=== PATIENT | male | born 1955 | race American Indian/Alaskan Native ===

== ENCOUNTER → 2017-11-17 | Outpatient (CLI) | payer OTHER | END | disposition home or self-care (01) | LOC: LABWHC1 12:08 → LABPAT 12:31 | PROVIDERS: ATTEND Orthopaedic Surgery | DX: Z01.812 Encounter for preprocedural laboratory examination (principal) | CPT/HCPCS: 87070 ==

== ENCOUNTER 2017-11-27 07:30 | Inpatient (IN) | payer OTHER ==
[2017-11-16 11:26] VITALS: BMI 45.8
--- NOTE | 2017-11-26 10:22 | HP ---
HISTORY AND PHYSICAL REASON FOR ADMISSION: 11/27/17 Britton Smith is a 62-year-old patient seen with symptomatic left knee osteoarthritis. We discussed treatment options. He elected to proceed with left total knee arthroplasty. Consent regarding the procedure was obtained. Medical clearance was provided by Dr. Aditya Hyde. PAST MEDICAL HISTORY: Ewm-xcpzcxh-kkqizffig diabetes, hypertension. PAST SURGICAL HISTORY: Left shoulder arthroscopy, left wrist surgery. MEDICATIONS: Metformin, Alprazolam, losartan. ALLERGIES: CELEBREX, METHOTREXATE. MORPHINE. SOCIAL HISTORY: Patient denies tobacco use. PHYSICAL EXAMINATION: Evaluation of the left knee range of motion is -2 to 100 degrees. Tenderness along the medial joint line. Positive medial Kassandra's. Crepitus along the medial patellofemoral compartments. Range of motion. Pain with patellofemoral compression. Ligaments stable. Hip rotation without pain. Distal neurovascular exam intact. RADIOGRAPHS: Radiographs of the left knee revealed severe medial moderate patellofemoral compartment osteoarthritis. IMPRESSION: 1. Left knee osteoarthritis. 2. Hypertension. 3. Npf-[id number] diabetes. PLAN: Left total knee arthroplasty. Surgery scheduled for 11/27/17. MMODL / IJN: [id number] /
[~2017-11-27 07:30] MED LIST: ACETAMINOPHEN TAB 500 MG TAB PO ONE; DEXAMETHASONE SOD PHOSPHATE 10 MG/ML 1 ML VIAL IV ONE; LACTATED RINGERS 1,000 ML IV SCH; LIDOCAINE 1% 20 ML VIAL (10MG/ML) FOR IV START INTRADERMA PRN; MELOXICAM 7.5 MG TAB PO ONE; MIDAZOLAM 2 MG/2 ML VIAL IV PRN; MORPHINE SULFATE 2 MG/ML SYRINGE IV PRN; ONDANSETRON ODT 4 MG TAB PO ONE; SCOPOLAMINE 1.5MG/72HR PATCH TRANSDERM ONE; TRANEXAMIC ACID 1,000 MG in SODIUM CHLORIDE 0.9% 50 ML IVPB ONE
[2017-11-27 08:55] LABS: Glucose,Whole Blood 181 mg/dL (75-99)
[2017-11-27] MEDS ORDERED: ONDANSETRON 4 MG/2 ML VIAL IVP ONE (09:10)
--- NOTE | 2017-11-27 09:46 | P.ONQ ---
Anesthesiology Proc Note - PNB - Peripheral Nerve Block Performed Left Adductor Canal Infusion Time Out Performed: Yes Procedure Start Time: 09:18 Indication: Acute Post-Operative Pain, Analgesia Sedation Type: Sedate with meaningful contact maintained Preparation: Sterile Prep Position: Supine Catheter: Indwelling Needle Types: Other (see comment) (Evan) Needle Size: 150mm (6") Needle Gauge: 18 Technique: Ultrasound Injectate: 0.5% Ropivacaine (see comment for volume) (20cc) Blood Aspirated: No Pain Paresthesia on Injection Noted: No Resistance on Injection: Normal Events: Uneventful and Well Tolerated
[2017-11-27] MEDS: ROPIVACAINE 1,100 MG, SODIUM CHLORIDE 0.9% 330 ML MISCELLANE PRN ×4 (10:01→13:17)
[2017-11-27] MEDS ORDERED: TRANEXAMIC ACID 1,000 MG/10 ML VIAL ONE (10:13)
[2017-11-27] MEDS ORDERED: PHENYLEPHRINE-0.9% NACL SYG 1 MG/10 ML SYRINGE ONE (10:13)
[2017-11-27] MEDS ORDERED: SODIUM CHLORIDE 0.9% 100 ML BAG ONE (10:13)
[2017-11-27] MEDS ORDERED: fentaNYL (PF) 50 MCG/ML 2 ML AMP ONE (10:13)
[2017-11-27] MEDS ORDERED: ROPIVACAINE 5 MG/ML 30 ML VIAL ONE (10:13)
[2017-11-27] MEDS ORDERED: GLYCOPYRROLATE 0.2 MG/ML 2 ML VIAL ONE (10:13)
[2017-11-27] MEDS ORDERED: MIDAZOLAM 2 MG/2 ML VIAL ONE (10:13)
[2017-11-27] MEDS ORDERED: ROCURONIUM BROMIDE 10 MG/ML 10 ML VIAL IV ONE (10:13)
[2017-11-27] MEDS ORDERED: PROPOFOL 10 MG/ML 20 ML VIAL IV ONE (10:13)
[2017-11-27] MEDS ORDERED: SUCCINYLCHOLINE CHLORIDE 100 MG/5 ML SYR IV ONE (10:13)
[2017-11-27] MEDS: ROPIVACAINE 246.25 MG, EPINEPHrine 0.5 MG, KETOROLAC 30 MG, cloNIDine HCL/PF 80 MCG, WA... MISCELLANE ONE ×15 (10:53→12:25)
[2017-11-27] MEDS ORDERED: ceFAZolin 3,000 MG in SODIUM CHLORIDE 0.9% IRRIGATIO 3,000 ML IRRIGATION ONE (11:00)
[2017-11-27] MEDS ORDERED: LACTATED RINGERS 1,000 ML IV ONE (11:02)
[2017-11-27] MEDS ORDERED: MORPHINE SULFATE 4 MG/0.8 ML SYRINGE (INJ) IVP PRN ×4 (12:44→14:36)
[2017-11-27] MEDS ORDERED: ONDANSETRON 4 MG/2 ML VIAL IVP PRN ×2 (12:44→14:35)
[2017-11-27] MEDS ORDERED: hydrOXYzine PAMOATE 25 MG CAP PO PRN ×2 (12:44→17:08)
[2017-11-27] MEDS ORDERED: NALOXONE 0.4 MG/ML 1 ML VIAL IV PRN ×2 (12:44→16:15)
[2017-11-27] MEDS ORDERED: HYDROcodone/APAP 7.5-325MG 1 EACH TAB PO PRN ×2 (12:44)
--- NOTE | 2017-11-27 12:44 | P.OP ---
Date of Procedure: 11/27/17 Preoperative Diagnosis: Left knee osteoarthritis Postoperative Diagnosis: Left knee osteoarthritis Procedure(s) Performed: Left total knee arthroplasty Implants: 1. Supa NexGen LPS flex cemented femoral component size G left tivanium 2. Supa NexGen size 6 tivanium cemented tibia 3. Supa NexGen size G/H 10 mm posterior stabilized polyethylene tibial insert 4. Supa NexGen all polyethylene cemented patella 35 mm Anesthesia: GETA, regional (Adductor canal block), local Surgeon: Ankit Burgess [employer] Operator #1: Justin Funes Estimated Blood Loss (ml): 75 Pathology: other (Bone) Condition: stable Disposition: PACU Indications for Procedure: 62-year-old patient seen was symptomatic left knee osteoarthritis. After treatment options were discussed, he elected to proceed with total knee arthroplasty. Operative Findings: see description of procedure Description of Procedure: Patient was taken to the operative suite after having an adductor canal catheter placed by the department of anesthesia. Patient underwent a spinal anesthetic by the department of anesthesia. Patient was given preoperative IV intake antibiotics and TXA. A well-padded tourniquet was placed about the left lower extremity. The lower extremity was then prepped and draped in the normal sterile orthopedic fashion. The extremity was elevated, a tourniquet was insufflated to 300. A standard anterior incision was made sharply through skin. Dissection was taken down through the subcutaneous soft tissues down to the extensor mechanism. A medial arthrotomy was performed, patella was everted and knee was flexed. There was advanced osteoarthritis noted. A proximal tibial cutting guide was positioned. Proximal tibial cut was made. A distal intramedullary femoral cutting guide was positioned, distal femoral cut made. We placed the appropriate sizing guide and selected the appropriate size. A distal 4-in-1 femoral cutting block was positioned, distal femoral cuts were made. We now placed a trial femoral component into position, along with an appropriate size tibial tray and insert. We now took the knee through range of motion and had full extension good flexion and good overall soft tissue balance noted. The patella was everted and a flush cut made with patellar quad tendon. We templated the patella, appropriate drill holes were made. An appropriate trial patella was positioned, knee was taken through full range of motion with the patella tracking very nicely. The trial patella was removed. Drill holes were made through the femoral component. All trial components were removed after marking off the appropriate rotation of the tibia. Retractors were now positioned along the proximal tibia. An appropriate keel punch was made with the appropriate size tibial guide. At this point appropriate size implants were chosen and opened. The joint was irrigated copiously with pulse lavage mechanical irrigation. The deep soft tissues were infiltrated local analgesic. We mixed antibiotic methylmethacrylate. Once the methyl methacrylate was ready, the tibial component was cemented into place removing any excess methylmethacrylate. The femoral component was cemented into place removing the removing any excess methylmethacrylate. We then inserted the appropriate size polyethylene tibial insert. We made sure that it was locked into position. We took the knee into full extension, and then back in a flexion making sure we had removed any excess methylmethacrylate. The patellar component was then cemented down and secured with clamp. Excess methylmethacrylate removed. We kept the knee in full extension, patellar clamp in position until methylmethacrylate had hardened. Once it had hardened the patellar clamp was removed. The knee was taken through full range of motion. The patella tracked nicely. There was good soft tissue balancing. The tourniquet was now released. Additional hemostasis was achieved via electrocautery. A second gram of TXA was given. The wound was irrigated with pulse lavage mechanical irrigation. The superficial soft tissues were infiltrated local analgesic. The extensor mechanism was repaired with Vicryl. We checked the repair with range of motion and it was stable. The subcutaneous soft tissues were repaired with Vicryl in layers. The skin was approximated with pernio/Dermabond. Sterile dressings were applied followed by loose web roll and Jeremías bandage. The patient was transferred to a bed, and taken to recovery in stable and satisfactory condition. Ruben WOODS assisted with the procedure.
[2017-11-27] MEDS ORDERED: LACTATED RINGERS 1,000 ML IV SCH (12:45)
[2017-11-27] MEDS ORDERED: traMADol 50 MG TAB PO SCH (13:00)
[2017-11-27] MEDS: fentaNYL (PF) 50 MCG/ML 2 ML AMP IV PRN ×7 (13:27→13:59)
[2017-11-27 13:42] LABS: Glucose,Whole Blood 240 mg/dL (75-99)
[2017-11-27] MEDS ORDERED: INSULIN ASPART 100 UNIT/ML 1 ML 10 ML VIAL SQ ONE (13:47)
[2017-11-27] MEDS ORDERED: LIDOCAINE-D5W PMX 2G/500ML 2,000 MG in DEXTROSE/WATER 1 500ML.BAG IV ONE (14:14)
[2017-11-27] MEDS ORDERED: NALOXONE 0.4 MG/ML 10 ML VIAL IVP PRN (14:36)
--- NOTE | 2017-11-27 14:44 | XR ---
EXAMINATION TYPE: XR knee limited LT DATE OF EXAM: 11/27/2017 CLINICAL HISTORY: Right knee pain and arthritis status post total knee replacement. TECHNIQUE: Portable AP and crosstable lateral views of the right knee are obtained immediately posto peratively. COMPARISON: None FINDINGS: Metallic hardware from total right knee arthroplasty is seen and appears satisfactory in a lignment and position. There is evidence of recent surgery with diffuse subcutaneous gas and soft ti ssue swelling noted. IMPRESSION: METALLIC HARDWARE FROM TOTAL RIGHT KNEE ARTHROPLASTY IS SATISFACTORY IN ALIGNMENT.
[2017-11-27] MEDS: oxyCODONE-APAP 10-325MG 1 EACH TAB PO PRN ×2 (14:48→21:55)
[2017-11-27] MEDS: LACTATED RINGERS 1,000 ML IV SCH (16:45)
[2017-11-27] MEDS: traMADol 50 MG TAB PO SCH ×2 (17:01→20:44)
[2017-11-27 17:25] LABS: Glucose,Whole Blood 304 mg/dL (75-99)
[2017-11-27] MEDS ORDERED: hydrOXYzine PAMOATE 25 MG CAP PO SCH (18:00)
[2017-11-27] MEDS: INSULIN ASPART 100 UNIT/ML 1 ML 10 ML VIAL SQ SCH ×2 (18:24→20:44)
[2017-11-27 20:39] LABS: Glucose,Whole Blood 285 mg/dL (75-99)
[2017-11-27] MEDS: ALPRAZolam 1 MG TAB PO SCH (20:45)
[2017-11-27] MEDS ORDERED: SENNOSIDES-DOCUSATE SODIUM 1 EACH TAB PO SCH (21:00)
[2017-11-27] MEDS ORDERED: ENOXAPARIN 30 MG/0.3 ML SYRINGE SQ SCH (23:00)
[2017-11-28] MEDS: LACTATED RINGERS 1,000 ML IV SCH ×2 (03:41→08:04)
[2017-11-28] MEDS: oxyCODONE-APAP 10-325MG 1 EACH TAB PO PRN ×2 (05:22→10:40)
[2017-11-28 07:04] LABS: Glucose,Whole Blood 175 mg/dL (75-99)
--- NOTE | 2017-11-28 07:04 | P.PN ---
Progress Note - Text Progress Note Date: 11/28/17 . Postoperative day # 1 status post total knee arthroplasty, under spinal anesthesia, and adductor canal catheter placed for postoperative analgesia, currently at ropivacaine 0.2% 8 mL per hour and continuous infusion, pain was controlled,, patient using oral pain medication for breakthrough pain. Assessment and plan= Acute postoperative pain, adductor canal catheter for pain control, pain is well controlled we'll continue the same management.
[2017-11-28 07:30] VITALS: RESP 17; TEMP 97.3
[2017-11-28 07:59] LABS: Basophils % (A) 0 %; Eosinophils % (A) 0 %; HCT 37.6 % (39.0-53.0); HGB 12.7 gm/dL (13.0-17.5); Lymphocytes # (A) 1.7 k/uL (1.0-4.8); Lymphocytes % (A) 10 %; MCH 31.5 pg (25.0-35.0); MCHC 33.8 g/dL (31.0-37.0); MCV 93.2 fL (80.0-100.0); Mean Platelet Volume 6.9; Monocytes # (A) 1.2 k/uL (0-1.0); Monocytes % (A) 7 %; Neutrophils # (A) 13.5 k/uL (1.3-7.7); Neutrophils % (A) 81 %; Platelet Count 297 k/uL (150-450); RBC 4.04 m/uL (4.30-5.90); RDW 13.4 % (11.5-15.5); WBC 16.6 k/uL (3.8-10.6)
[2017-11-28] MEDS: ALPRAZolam 1 MG TAB PO SCH (08:03)
[2017-11-28] MEDS: traMADol 50 MG TAB PO SCH (08:03)
[2017-11-28] MEDS: INSULIN ASPART 100 UNIT/ML 1 ML 10 ML VIAL SQ SCH (08:07)
[2017-11-28] MEDS ORDERED: MORPHINE ORAL SOLN 10 MG/5 ML CUP PO PRN (08:24)
[2017-11-28] MEDS ORDERED: ENOXAPARIN 30 MG/0.3 ML SYRINGE SQ SCH (09:00)
[2017-11-28] MEDS ORDERED: FAMOTIDINE 20 MG TAB PO SCH ×2 (09:00)
[2017-11-28] MEDS ORDERED: LOSARTAN 50 MG TAB PO SCH (09:00)
[2017-11-28] MEDS ORDERED: MELOXICAM 7.5 MG TAB PO SCH ×2 (09:00)
[2017-11-28] MEDS ORDERED: HYDROCHLOROTHIAZIDE 12.5 MG CAP PO SCH (09:00)
[2017-11-28] MEDS ORDERED: metFORMIN 500 MG TAB PO SCH (09:00)
[2017-11-28 11:07] VITALS: BP 132/70; PULSE 89
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
[2017-11-28 11:26] LABS: Glucose,Whole Blood 190 mg/dL (75-99)
--- NOTE | 2017-11-28 11:45 | P.PN ---
Subjective Progress Note Date: 11/28/17 Principal diagnosis: Status post left total knee arthroplasty Patient seen today resting in his hospital bed, he is on the CPM machine. His is present at bedside. He's done well with physical therapy. He is urinating on his own. He denies any headaches, lightheadedness, chest pain or shortness of breath. Objective - Vital Signs Vital signs: Vital Signs Temp 97.3 F L 11/28/17 07:29 Pulse 89 11/28/17 11:07 Resp 17 11/28/17 07:30 BP 132/70 11/28/17 11:07 Pulse Ox 94 L 11/28/17 11:07 Intake & Output 11/27/17 11/28/17 11/28/17 18:59 06:59 18:59 Intake Total 2050 2100 600 Output Total 75 2250 500 Balance 1976 -150 100 Weight 153.314 kg Intake: IV 2050 Intake, IV Titration 1100 Amount Lactated Ringers 1,000 ml 1050 @ 100 mls/hr IV .Q10H [facility] Rx#:[id number] ceFAZolin 3 gm In Sodium 50 Chloride 0.9% 50 ml @ 100 mls/hr IVPB Q8HR [facility]ON Rx# :[id number] Oral 1000 600 Output: Urine 2250 500 Straight 750 Estimated Blood Loss 75 Other: Voiding Method Urinal - Exam Left lower extremity: Incision is clean, dry, and intact. The prineo tape is in good condition. There is minimal soft tissue swelling and ecchymosis surrounding the medial and lateral aspects of the incision. Calf is soft, no tenderness with palpation. Plantar flexion, dorsiflexion, EHL, FHL are intact. Sensory exam to light touch throughout the extremity is intact, dorsal pedis pulses 2+. - Labs CBC & Chem 7: 11/28/17 06:49 Labs: Abnormal Lab Results - Last 24 Hours (Table) 11/27/17 11/27/17 11/27/17 Range/Units 13:41 17:18 20:25 WBC (3.8-10.6) k/uL RBC (4.30-5.90) m/uL Hgb (13.0-17.5) gm/dL Hct (39.0-53.0) % Neutrophils # (1.3-7.7) k/uL Monocytes # (0-1.0) k/uL POC Glucose (mg/dL) 240 H 304 H 285 H (75-99) mg/dL 11/28/17 11/28/17 11/28/17 Range/Units 06:49 06:53 11:21 WBC 16.6 H (3.8-10.6) k/uL RBC 4.04 L (4.30-5.90) m/uL Hgb 12.7 L (13.0-17.5) gm/dL Hct 37.6 L (39.0-53.0) % Neutrophils # 13.5 H (1.3-7.7) k/uL Monocytes # 1.2 H (0-1.0) k/uL POC Glucose (mg/dL) 175 H 190 H (75-99) mg/dL Assessment and Plan Plan: Assessment: 1. Postop day 1 status post left total knee arthroplasty Plan: Pain control, he will resume his are to prescribe narcotic pain medication GI and DVT prophylaxis, will be discharged home on aspirin 325 mg twice a day Home therapy and nursing after discharge Wound care instructions were discussed Home CPM daily Medical recommendations Discharge planning: Patient will be discharged home today Time with Patient: Less than 30
--- NOTE | 2017-11-28 11:47 | P.DS ---
Providers Date of admission: 11/27/17 08:13 Expected date of discharge: 11/28/17 Attending physician: Ankit Burgess Consults: 11/27/17 12:44 Consult Physician Routine Consulting Provider: Aditya Hyde Reason/Comments: Medical management Do you want consulting provider notified?: Yes Primary care physician: Aditya Hyde [facility] Course: Date of admission: 11/27/2017 Date of discharge: 11/28/2017 Admission diagnosis: Status post left total knee arthroplasty Discharge diagnosis: Same Attending physician: Dr. Burgess Procedures: Left total knee arthroplasty Brief history: Patient is a 62-year-old male with a history of progressive primary left knee osteoarthritis. At this point patient has failed conservative treatment measures and has opted to proceed with a elective left total knee arthroplasty. Hospital course: Details of patient's surgery can be found in operative report. Patient tolerated the procedure well and was subsequently transported to orthopedic floor. Patient's orthopeidc and medical care was provided daily. Patient had daily laboratory tests performed for evaluation of overall blood counts. Patient had daily physical therapy to include strengthening range of motion as well as education with walker ambulation. Patient had daily CPM usage as part of their physical therapy program. Patient was treated with Lovenox for their postoperative DVT prophylaxis during their inpatient stay. Patient was noted to have a relatively uneventful postoperative course. Patient reported satisfactory pain control with oral pain medications by postoperative day 0. Patient showed satisfactory progress with physical therapy. Patient moved steadily through the program and had no difficulty meeting the goals by postoperative day 1. Given patient's otherwise satisfactory course and having met physical therapy goals, plan is to discharge patient home on postoperative day 1. Discharge condition/disposition: Patient will be discharged home in stable condition. Discharge medications: Instructions are given on resumption of patient's normal daily medications per primary care recommendation, in addition patient will be prescribed aspirin 325 mg, tramadol 50 mg. Discharge instructions: 1. Wound care and infection precautions, keep incision dry and covered while showering, no lotions, creams, moisturizers. No soaking, tubs, pools, hottubs. Do not scrub over the incision. 2. Weight-bear as tolerated with walker / cane until follow-up. 3. Ice and elevate when necessary. Do not exceed 20 minutes per hour with ice pack. 4. Utilize compression sleeve until seen at first follow up appointment. 5. Visiting nursing care. 6. Home physical therapy including home CPM. 7. Pain meds and anticoagulants per prescription. 8. Pain medication has potential to cause constipation. Increase oral fluid and fiber intake. Contact primary care provider if you have not had a bowel movement within 48 hours after discharge 9. No anti-inflammatory medication until discussed at first post operative visit, this including Motrin, Aleve, Mobic, Diclofenac. 10. Follow up in office at 2 weeks postop with Ruben Funes PA-C 11. Follow up with your primary care doctor 7-10 days after discharge. 12. Contact [facility] with any questions, . Procedures: Left total knee arthroplasty Patient Condition at Discharge: Good Plan - Discharge Summary Discharge Rx Participant: Yes New Discharge Prescriptions: New Aspirin 325 mg PO BID #60 tab traMADol HCl [Ultram] 50 mg PO Q6H PRN #40 tab PRN Reason: Pain No Action oxyCODONE-APAP 10-325MG [Percocet 10-325 mg] 1 tab PO Q6HR PRN PRN Reason: Pain metFORMIN HCL [Glucophage Xr] 500 mg PO AC-LUNCH Losartan/Hydrochlorothiazide [Losartan-Hctz 100-12.5 mg Tab] 1 tab PO DAILY ALPRAZolam [Xanax] 1 mg PO TID Discharge Medication List ALPRAZolam [Xanax] 1 mg PO TID 11/16/17 [History] Losartan/Hydrochlorothiazide [Losartan-Hctz 100-12.5 mg Tab] 1 tab PO DAILY 07/24 [History] metFORMIN HCL [Glucophage Xr] 500 mg PO AC-LUNCH 11/16/17 [History] oxyCODONE-APAP 10-325MG [Percocet 10-325 mg] 1 tab PO Q6HR PRN 11/16/17 [History ] Aspirin 325 mg PO BID #60 tab 11/28/17 [Rx] traMADol HCl [Ultram] 50 mg PO Q6H PRN #40 tab 11/28/17 [Rx] Follow up Appointment(s)/Referral(s): [facility], [NON-STAFF] - 1 Week Justin Funes PAC [PHYSICIAN PERSONAL COMPUTER NETWORK ANALYST] - 2 Weeks Activity/Diet/Wound Care/Special Instructions: [facility] - [phone] - Will deliver to bedside before discharge Orthopedic Discharge Instructions: 1. Wound care and infection precautions, keep incision dry and covered while showering, no lotions, creams, moisturizers. No soaking, pools, hot tubs. Do not scrub over incision. 2. Weight-bear as tolerated with walker / cane until follow-up. 3. Ice and elevate when necessary. Do not exceed 20 minutes per hour with ice pack. 4. Utilize compression sleeve until seen at first follow up appointment. 5. Visiting nursing care. 6. Home physical therapy including home CPM. 7. Pain meds and anticoagulants per prescription. 8. Pain medication has potential to cause constipation. Increase oral fluid and fiber intake. Contact primary care provider if you have not had a bowel movement within 48 hours after discharge. 9. No anti-inflammatory medication until discussed at first post operative visit, this including Motrin, Aleve, Mobic, Diclofenac. 10. Follow up in office at 2 weeks postop with Ruben Funes PA-C 11. Follow up with your primary care doctor 7-10 days after discharge. 12. Contact [facility] with any questions, . Discharge Disposition: HOME WITH HOME HEALTH SERVICES
[2017-11-28 16:12] LABS: Hemoglobin A1C 7.8 % (4.0-6.0)
[2017-11-28] MEDS ORDERED: SENNOSIDES-DOCUSATE SODIUM 1 EACH TAB PO SCH (21:00)
== END 2017-11-28 13:25 | disposition home health service (06) | DRG 470 ==
LOC: 2ORMAIN 08:13 → 3SUR 12:46
PROVIDERS: ADMIT Orthopaedic Surgery; ATTEND Orthopaedic Surgery
PROC: 0SRD0J9 Replacement of Left Knee Joint with Synthetic Substitute, Cemented, Open Approach (ICD-10-PCS; principal; 2017-11-27 10:15)
DX: M17.12 Unilateral primary osteoarthritis, left knee (principal); E66.01 Morbid (severe) obesity due to excess calories; Z68.42 Body mass index [BMI] 45.0-49.9, adult; E11.9 Type 2 diabetes mellitus without complications; I10 Essential (primary) hypertension; M06.9 Rheumatoid arthritis, unspecified; F41.9 Anxiety disorder, unspecified; Z79.84 Long term (current) use of oral hypoglycemic drugs; Z87.891 Personal history of nicotine dependence; Z79.899 Other long term (current) drug therapy; Z88.5 Allergy status to narcotic agent; Z88.8 Allergy status to other drugs, medicaments and biological substances
CPT/HCPCS: 83036; 85025; 88300; 93005

== ENCOUNTER → 2024-03-15 | Outpatient (CLI) | payer MEDICARE, OTHER | END | disposition home or self-care (01) | LOC: LABPRL 11:50 | PROVIDERS: ATTEND Family Medicine | CPT/HCPCS: 80053; 80061; 83036; 85025 ==